=== PATIENT | male | born 1955 | race Caucasian/White ===

== ENCOUNTER 2023-01-25 11:29 | Emergency (ER) | payer MEDICARE, OTHER ==
[~2023-01-25] VITALS: Ht 170.2 cm; Wt 82.1 kg
[~2023-01-25 11:29] MED LIST: ASPI-1406; CARV6.2548; CLOP75TA33; LISI10TA26; PRAV80TA21
[2023-01-25 11:49] VITALS: TEMP 98.2; O2SAT 99
[2023-01-25 16:27] LABS: CLARITY URINE CLEAR (CLEAR); COLOR URINE YELLOW (YELLOW); GLUCOSE URINE NEGATIVE (NEGATIVE); KETONES URINE 2+ (NEGATIVE); NITRITE URINE NEGATIVE (NEGATIVE); OCCULT BLOOD URINE NEGATIVE (NEGATIVE); PROTEIN URINE NEGATIVE (NEGATIVE)
[2023-01-25 16:28] LABS: LEUKOCYTE ESTERASE URINE NEGATIVE (NEGATIVE); UROBILINOGEN URINE 0.2 E.U./dL (0.2-1.0)
[2023-01-25] MEDS ORDERED: PYR200 MT (17:09)
[2023-01-25] MEDS ORDERED: IBUP-2029 MT (17:09)
[2023-01-25] MEDS ORDERED: TOPUD MT (17:09)
[2023-01-25 17:41] VITALS: BP 130/88; PULSE 76; RESP 20
== END 2023-01-25 17:41 | disposition home or self-care (01) ==
LOC: ER 11:29
DX: R30.0 Dysuria (principal); I10 Essential (primary) hypertension; E78.00 Pure hypercholesterolemia, unspecified
CPT/HCPCS: 81003; 99283